=== PATIENT | male | born 1965 | race Caucasian/White ===

== ENCOUNTER 2017-01-16 08:05 | Day surgery (SDC) | payer BC ==
[2017-01-11 14:40] VITALS: BMI 25.1
[2017-01-16] MEDS ORDERED: PROPOFOL 20 ML ONE ×4 (08:16→09:39)
[2017-01-16 10:40] VITALS: TEMP 98
[2017-01-16 10:42] VITALS: BP 104/68; PULSE 63
== END 2017-01-16 10:40 | disposition home or self-care (01) ==
LOC: FASU-ENDO 08:05
PROVIDERS: ATTEND Internal Medicine Gastroenterology
PROC: 0DJD8ZZ Inspection of Lower Intestinal Tract, Via Natural or Artificial Opening Endoscopic (ICD-10-PCS; principal; 2017-01-16 09:39)
DX: Z86.010 Personal history of colon polyps (principal)